=== PATIENT | female | born 1965 | race Two or more races ===

== ENCOUNTER → 2019-10-05 14:33 | Outpatient (CLI) | payer OTHER, SELFPAY ==
[2019-10-11 04:54] LABS: Anti-Nuclear Antibody Test Negative (.)
== END ==
PROVIDERS: Referring Provider Dermatology; Visit Provider Dermatology
DX: L08.1 Erythrasma (principal); L90.0 Lichen sclerosus et atrophicus; L85.8 Other specified epidermal thickening
CPT/HCPCS: 36415; 86038

== ENCOUNTER → 2019-10-24 09:38 | Outpatient (CLI) | payer OTHER, SELFPAY ==
[2019-10-24 13:01] LABS: Color, Urine Yellow (Yellow); Glucose, Dipstick Normal (Normal); Ketone-Dipstick 5 mg/dl (Negative); Leukocyte Esterase-Dipstick 100 /ul (Negative); Nitrite-Dipstick Positive (Negative); Occult Blood-Urine 25 /ul (Negative); Protein-Dipstick Negative (Negative); Urine Bilirubin Dipstick Negative (Negative); Urine Clarity Sl. Cloudy (Clear); Urine Urobilinogen Normal (Normal)
== END ==
PROVIDERS: Referring Provider Urology; Visit Provider Urology
DX: N39.0 Urinary tract infection, site not specified (principal)
CPT/HCPCS: 81002; 87086; 87088; 87186

== ENCOUNTER 2019-11-24 08:27 | Day surgery (SDC) | payer OTHER, SELFPAY ==
[2019-11-18 19:38] LABS: Probe Check PASS; Specimen Processing Control PASS
[2019-11-24 09:14] VITALS: BP 130/79; PULSE 60; RESP 14; TEMP 37.1; O2SAT 99; BMI 34.0
[2019-11-24 09:41] LABS: Bedside Glucose 122 mg/dL (70-110)
[2019-11-24] MEDS: Lactated Ringers 1,000 ML 100 ML IV (09:50)
[2019-11-24] MEDS: Cefazolin 2 GM in 0.9% Normal Saline 100 ML IV (10:18)
[2019-11-24 10:46] VITALS: BP 102/59; BP 130/79; PULSE 65; RESP 16; TEMP 35.9; O2SAT 99
[2019-11-24 10:50] VITALS: BP 108/79; BP 130/79; PULSE 68; RESP 16; O2SAT 98
[2019-11-24 10:55] VITALS: BP 110/63; BP 130/79; PULSE 56; RESP 16; O2SAT 98
--- NOTE | 2019-11-24 10:56 | DCINST_ITS ---
Discharge Diet: No Restrictions Discharge Activity: Return to Normal Activity, May not drive while taking narcotic pain medications., May Shower May resume sexual activity in: No Restrictions Call your doctor if you observe: Fever of 101 or Higher, Inability to urinate, Inability to have a bowel movement Allergies/Adverse Reactions: Allergies No Known Allergies Allergy (Verified 11/18/19 14:01) Medications to take at Discharge Metformin HCl 500 mg PO DAILY 11/18/19 Levofloxacin [Levaquin] 500 mg PO DAILY 11/24/19 Oxycodone HCl/Acetaminophen [Percocet 5/325] 2 tablet PO Q8H PRN PRN 3 Days #10 tablet 11/24/19 Phenazopyridine HCl [Pyridium] 200 mg PO TID PRN PRN 7 Days #30 tab 11/24/19 The following prescriptions were given: Oxycodone HCl/Acetaminophen [Percocet 5/325] 2 tablet PO Q8H PRN PRN 3 Days #10 tablet PRN Reason: Pain Transmission Status: Received by YOVANY CASTRO RD Phenazopyridine HCl [Pyridium] 200 mg PO TID PRN PRN 7 Days #30 tab PRN Reason: Bladder Spasms Transmission Status: Pending to YOVANY CASTRO RD Primary Care Physician: Amol Emmanuel III, MD [Primary Care Provider] - Test Results: Test results from this visit will be discussed in further detail at your follow- up appointment, if applicable. Please Follow Up With: Ana Blanco MD When: call for appt to be seen in 2 weeks Proposed Discharge Date: 11/24/19
--- NOTE | 2019-11-24 10:58 | OP.PCM_ITS ---
Problem List (1) Urinary tract infection Status: Acute (2) Stricture of female urethra Status: Acute Report of Operation Date of Procedure: 11/24/19 Pre-Operative Diagnosis: Recurrent urinary tract infection, urethral stricture Post-Operative Diagnosis: Same Surgery/Procedure Performed:: Cystoscopy, pelvic exam under anesthesia, urethral dilation Type of Anesthesia:: MAC Specimen's removed: none Estimated Blood Loss (mL): 2 cc Description of Procedure: The patient is a 54-year-old female who had a mid urethral sling inserted approximately 3 years ago. She has been having issues with urinary tract infections. I attempted cystoscopy in the office and was unable to pass a 14 [place] straight catheter through the urethra. Informed consent was obtained for further evaluation under anesthesia with pelvic exam, cystoscopy and possible urethral dilation. COVID-19 risks were also discussed. She understood and desired to proceed. Patient was taken to the operating room and placed on the operating room table. Anesthesia monitored the head, neck, airway, IV access and vital signs throughout the case. Once anesthesia was appropriate ministered the patient was prepped and draped in usual sterile fashion. She is positioned in dorsal lithotomy. At this time a pelvic examination was performed revealing no palpable mesh or abnormality. There is a laxity of her pelvic floor. At this time using a 12 degree lens, the cystoscope entered through the urethra into the urinary bladder with mild difficulty at the meatus. The remainder of the urethra revealed no evidence of erosion of mesh. The urethra is very short in length. The area of difficulty in gaining access is right at the meatus. There is a higher bladder neck as well. At this time the 70 degree lens was used to visualize the remainder of the bladder mucosa. There is diffuse cystitis cystic a present. There are no other abnormalities including mucosal mass, ulceration or foreign body. At this time the cystoscope was removed leaving the bladder full. The urethra was dilated gently from 22 Chilean to 26 Chilean. Her bladder was then emptied with the cystoscope sheath. She was awakened and taken to the recovery room in good condition. There were no complications during this procedure. Grafts/Implants Used: None - Complications None - Admit VTE Documentation VTE Present on Admission: Yes VTE Mechan Device Prophylaxis: SCD's VTE Pharm Prophylaxis ordered?: No Reason prophylaxis not ordered:: Treatment Not Indicated
[2019-11-24 11:00] VITALS: BP 106/71; BP 115/68; BP 130/79; PULSE 56; PULSE 59; RESP 16; TEMP 36.2; O2SAT 59; O2SAT 99
[2019-11-24 12:21] VITALS: BP 121/67; BP 130/79; PULSE 53; RESP 15; TEMP 36.5; O2SAT 100
== END 2019-11-24 12:23 | disposition home or self-care (01) ==
LOC: SDC 08:29 → AC 08:29
PROVIDERS: Anesthesiology; PCP Family Medicine; Referring Provider Urology; Visit Provider Urology
PROC: 0TJB8ZZ Inspection of Bladder, Via Natural or Artificial Opening Endoscopic (ICD-10-PCS; CPT 57410; principal; 2019-11-24 10:00)
DX: N35.92 Unspecified urethral stricture, female (principal); N30.80 Other cystitis without hematuria; Z11.59 Encounter for screening for other viral diseases; E11.9 Type 2 diabetes mellitus without complications; Z79.84 Long term (current) use of oral hypoglycemic drugs; Z79.899 Other long term (current) drug therapy
CPT/HCPCS: 00910; 53665; 57410; 82962; 87635; 94799; J7120; U0003

== ENCOUNTER → 2020-11-22 09:28 | Outpatient (CLI) | payer OTHER, SELFPAY ==
--- NOTE | 2020-11-22 09:32 | US_ITS ---
EXAM: US RETROPERITONEAL COMPLETE, RENAL CLINICAL INDICATION: Intermittent UTIs for several years TECHNIQUE: Grayscale and color Doppler sonographic evaluation of the retroperitoneum was performed. This report was created using gis.to report generation technology. COMPARISON: None. FINDINGS: LIMITATIONS: Limited by patient obesity and bowel gas. RIGHT KIDNEY: Mild right hydronephrosis. No shadowing calculus. No perinephric collection is demonstrated. LEFT KIDNEY: Unremarkable. No hydronephrosis with only minimal distention of the calyces. No shadowing calculus. No focal lesion. No perinephric collection is demonstrated. BLADDER: Bilateral ureteral jets are confirmed. No bladder wall thickening. US/Kidney and Bladder IMPRESSION: Mild right hydronephrosis. Electronically Signed: Ghanshyam Lipscomb MD ([place]) at 17:26 EDT , Service support ,
== END ==
PROVIDERS: PCP Family Medicine; Referring Provider Urology; Visit Provider Urology
DX: N39.0 Urinary tract infection, site not specified (principal)
CPT/HCPCS: 76770

== ENCOUNTER → 2020-12-10 07:58 | Outpatient (CLI) | payer OTHER, SELFPAY ==
--- NOTE | 2020-12-10 08:00 | CT_ITS ---
STUDY: CT ABDOMEN AND PELVIS WITH AND WITHOUT CONTRAST REASON FOR EXAM: Female, 55 years old. UTI RADIATION DOSAGE (If Supplied By Facility): CTDIvol = ( 10.34 ) mGy, DLP = ( 1431.82 ) mGycm TECHNIQUE: Transaxial images were obtained from the dome of the diaphragm to the symphysis pubis without oral contrast. [id number] 100ML was administered. Sagittal and coronal images were reconstructed. Individualized dose optimization techniques were used for this CT. COMPARISON: None. FINDINGS: The visualized lung bases are unremarkable. The visualized portions of the heart are within normal limits. Normal liver. Normal gallbladder and extrahepatic biliary system. There are multiple benign calcified granulomata of the spleen. Normal pancreas. Normal bilateral adrenal glands. Normal right kidney. Normal left kidney. Normal visualized stomach. Normal small intestine. Normal colon. The appendix is visualized and appears normal. Normal abdominal aorta. Normal inferior vena cava. Normal retroperitoneum. Normal urinary bladder. There is absence of the uterus consistent with a prior hysterectomy. Normal abdominal wall. Normal osseous structures. CT/CT Abd/Pelvis W/WO Contrast IMPRESSION: Normal unenhanced and enhanced CT of the abdomen and pelvis. Electronically Signed: Clive Womack MD at 9:57 EDT , Service support ,
[2020-12-10 08:35] LABS: CREATININE FINGERSTICK 1.1 mg/dL (0.55-1.02)
== END ==
PROVIDERS: PCP Family Medicine; Referring Provider Urology; Visit Provider Urology
DX: N13.30 Unspecified hydronephrosis (principal); N39.0 Urinary tract infection, site not specified
CPT/HCPCS: 74178; Q9967

== ENCOUNTER 2021-05-10 17:55 | Outpatient (CLI) | payer BC, SELFPAY ==
--- NOTE | 2021-05-10 18:19 | MRI_ITS ---
HISTORY: URETHRAL STRICTURE, RECURRENT UTI -- URETHRA EXAMINATION: MR Pelvis Female WO/W Contrast TECHNIQUE: Multiplanar and multisequence MR images of the abdomen were obtained. IV Contrast dosage and agent: 14cc dotarem IV COMPARISON: CT abdomen and pelvis December 10, 2020 FINDINGS: Uterus is absent. Prominent bilateral adnexal vessels. No discrete mass seen in the lower pelvis. Bladder 4.1 x 7.5 x 8.3 cm (132ml) without focal bladder wall thickening. No perivesical inflammation. Unremarkable homogeneous urine. No urethral distention. No evidence of urethral diverticulum. Imaged bowel is unremarkable. No pelvic free fluid. No acute osseous finding. MRI/Pelvis W/WO Contrast IMPRESSION: No evidence of urethral diverticulum. No current urethral or bladder distention or surrounding inflammation. Prior hysterectomy. at 0632 Reported and signed by: Richard Colon MD Electronically Signed: Richard Colon MD at 6:31 EST Tel , Service support ,
== END 2021-05-10 23:59 | disposition short-term general hospital (02) ==
PROVIDERS: PCP Internal Medicine; Visit Provider Urology
DX: N35.92 Unspecified urethral stricture, female (principal); Z87.440 Personal history of urinary (tract) infections
CPT/HCPCS: 72197; A9575; A4216

== ENCOUNTER 2023-07-04 18:03 | Emergency (ER) | payer BC, SELFPAY ==
[2023-07-04 18:04] VITALS: BP 132/81; PULSE 72; RESP 18; TEMP 36.2; O2SAT 99; BMI 27.3
[2023-07-04] MEDS: Diphth,Pertuss(Acell),Tet Vac 0.5 ML Vial IM (18:23)
--- NOTE | 2023-07-04 18:24 | RAD_ITS ---
INDICATION: Injury/Pain -- Little EXAMINATION/TECHNIQUE: X-RAY - LEFT HAND XR Fingers 3 VIEWS COMPARISON: FINDINGS: SOFT TISSUES: No soft tissue swelling or gas. No radiopaque foreign body. BONES/JOINTS: There is a fracture of the base of the middle phalanx.. No sclerotic or destructive changes observed. RAD/Finger(s) Min 2 Views IMPRESSION: Fracture at the base of the middle phalanx.. Electronically Signed: Tavo Hooks DO at 19:27 EDT ,
--- NOTE | 2023-07-04 18:24 | EDS_ITS ---
HPI HPI - Fall History of Present Illness Chief Complaint: Fall Detail of Chief Complaint: Mechanical fall down 4 or 5 steps carrying object. She hit her head Informant: patient and spouse/S.O. Occured/Mechanism Occurred: Today and Hours Mechanism/Context: Yes slip, No cannot recall fall, No prodromal and No other see narrative below Narrative: Fell down 4-5 steps carrying object Pain/Injury Location: Left side of head and left little finger Current Severity: Mild Maximum Severity: Moderate Worsened by: Palpation Relieved by: Nothing Associated Symptoms Associated Symptoms: Negative for Parasthesias, Weakness, Loss of function, Inability to ambulate, Loss of consciousness or Amnesia Length of loss of consciousness: Not applicable Narrative Narrative: Patient is a 58-year-old woman who presents after closed head injury. She has type 2 diabetes. She denies loss of conscious. Not amnestic. She denies neck pain. Denies paresthesia, anesthesia medics. Denies double vision, blurred vision loss of vision. She reports that her scalp feels tight. She denies ringing or ears decreased hearing. Denies neck pain. She denies chest pain or shortness of breath. She denies nausea or vomiting. Denies problems with balance or coordination. There is been no change in her speech. Patient states her little finger was deformed. She straightened it out. She is complaining of pain and difficulty using her little finger. Tetanus Immunization: >10 years Prior similar symptoms: No Recent Illness/Hospitalization: No [facility] Medical History Bladder prolapse Home Medications metformin 500 mg tablet 500 mg PO DAILY diabetes 11/18/19 [History Last Taken Unknown] levofloxacin 500 mg tablet 500 mg PO DAILY 11/24/19 [History Last Taken Unknown] Allergy/AdvReac Type Severity Reaction Status Date / Time No Known Allergies Allergy Verified 07/04/23 18:04 Social History (Updated 07/04/23 @ 18:[address] Gabriel Marte MD) household members: spouse Smoking Status: Never smoker ROS ROS ED Constitutional Constitutional ED: Denies chills, fever(s), subjective, sweats or weight loss Eyes Eyes: Denies blurry vision, change in vision or diplopia ENT ENT ED: Reports other Details: Denies dental trauma or problems with her bite. ; Denies ear pain, rhinorrhea or sore throat Cardiovascular Cardiovascular: Denies chest pain Respiratory/Chest Respiratory/Chest: Denies dyspnea Gastrointestinal Gastrointestinal: Denies nausea or vomiting Musculoskeletal Musculoskeletal: Reports other Details: Deformity left little finger ; Denies arthralgias, back pain, myalgias or neck pain Integumentary Reports Abrasions Neurologic Neurologic: Denies headache(s), paresthesias or weakness Hematologic/Lymphatic Hematologic/Lymphatic: Denies easy bleeding or easy bruising EXAM Physical Exam Const Vital Signs: 07/04/23 18:04 07/04/23 18:13 Temperature 97.1 F L Temperature Source Temporal Pulse Rate 72 Respiratory Rate 18 Respiratory Effort Normal Respiratory Depth Normal Respiratory Pattern Normal Blood Pressure 132/81 H Blood Pressure Mean 98 Pulse Ox 99 Oxygen Delivery Method Room Air Positive well nourished and well developed General Appearance ED: well developed and NAD HEENT Reports normocephalic, TM's clear and TM's normal bilaterally trauma, contusion and hematoma Hematoma Size: Superior left forehead near the hairline with abrasion, left parietal occip Tympanic Membrane ED: Yes TM's clear Eyes PERRL and EOMs intact bilaterally Eyes Narrative: There is no subconjunctival hemorrhage. There is no step-off of the infraorbital rim. There is no evidence of entrapment. There is no hyperesthesia of the infraorbital nerve. There is no septal deviation hematoma. General Eye ED: Negative for pale conjunctiva or scleral icterus Neck full ROM, no lymphadenopathy and supple Resp normal respiratory effort and clear to auscultation bilaterally Cardio regular rate and regular rhythm Back/Spine Cervical Spine: Negative for cervical spine tenderness Extremity Extremity Narrative: Patient has swelling and ecchymosis of the left little finger. There is rotational malalignment which may be due to fracture versus soft tissue swelling. The extensor minimized tendon is functionally intact. The flexor digitorum superficialis and flexor digitorum profundus are intact. Sensation is normal. Capillary fill is normal. Median, radial and ulnar function intact. There is no pain the patient with the carpal bones or metacarpal bones. She has pain ovation over the proximal phalanx of the left little finger. There is no subungual hematoma noted. Neuro oriented x3, CN's II-XII intact bilaterally, moves all extremities, no focal motor deficits and no sensory deficits noted [place] Coma Scale: document GCS findings Spontaneous Obeys Commands Oriented 15 Sensorium / Orientation: alert Motor Exam: strength 5/5 throughout Psych mental status grossly normal and thought process normal Skin Trauma: abrasion MDM MDM MDM Narrative Medical decision making narrative: Based on the [place] CT head rule and [place] rule imaging of the head is not indicated. Since patient has no neck pain no pain the patient with full active range of motion imaging of the neck is not indicated. Since there is deformity of the left little finger and patient reports that the finger appears better because she straightened it out will obtain x-ray to determine type of fracture. Patient's tetanus was updated. History & Record Review Additional record(s) reviewed:: Prior outpatient record (Outpatient surgery for uterine stricture.) Radiography Chest X-Ray - ED: Read by ED Physician (Three-view x-ray of the left little finger reveals an avulsion fracture consistent with a volar plate injury. This involves the middle proximal phalanx. Patient does have tenderness over the area where the bone is avulsed. Will place in an extension block type splint and refer to Dr. Pleitez who i) Discharge Plan Triage Chief Complaint: Fall ED Provider: Gabriel Marte Dx/Rx/DC Orders Clinical Impression: Avulsion fracture of middle phalanx of finger, Forehead contusion, Contusion of scalp, Volar plate injury of interphalangeal finger joint Instructions: ED Facial Contusion, ED Fracture, Finger, Closed Prescriptions: No Action metformin 500 MG tablet 500 mg PO DAILY levofloxacin 500 MG tablet 500 mg PO DAILY Primary Care Provider: Farzaneh Mares Referrals: Farzaneh Mares MD [Primary Care Provider] - Ge Arellano MD [Med Staff - Active Staff] - 3-5 Days Activity Restrictions/Additional Instructions: 1. Apply ice to areas of pain 2. Apply bacitracin ointment to the forehead abrasion 3 times a day 3. Contact Dr. Arellano's office on Thursday for follow-up this coming week Disposition Disposition: Home, Self Care
[2023-07-04 18:55] VITALS: BP 120/84; PULSE 64; RESP 14; TEMP 36.8; O2SAT 100
== END 2023-07-04 18:57 | disposition home or self-care (01) ==
PROVIDERS: Emergency Provider Emergency Medicine; PCP Internal Medicine; Visit Provider Emergency Medicine
DX: S00.03XA Contusion of scalp, initial encounter (principal); E11.9 Type 2 diabetes mellitus without complications; W22.8XXA Striking against or struck by other objects, initial encounter; W10.9XXA Fall (on) (from) unspecified stairs and steps, initial encounter; S62.629A Displaced fracture of middle phalanx of unspecified finger, initial encounter for closed fracture; Z23 Encounter for immunization
CPT/HCPCS: 73140; 90471; 90715; 99283